=== PATIENT | male | born 1935 | race Caucasian/White ===

== ENCOUNTER → 2018-06-08 | Outpatient (CLI) | payer MEDICARE ==
[~2018-06-08] MED LIST: DILT120C9 PO; ENOX100S5 SQ; FURO20TA3 PO; LANS15CA5 PO; ONDA4TAB13 SL; POTA8TAB PO; SIMV40TA3 PO; TRAM-47 PO; WARF4TAB65 PO
== END | disposition home or self-care (01) ==
LOC: RAD 08:31
PROVIDERS: ATTEND Internal Medicine
DX: I82.432 Acute embolism and thrombosis of left popliteal vein (principal); Z86.711 Personal history of pulmonary embolism

== ENCOUNTER 2018-06-12 15:59 | Inpatient (IN) | payer MEDICARE, OTHER ==
[~2018-06-12] VITALS: Ht 180.3 cm; Wt 126.4 kg
[2018-06-12 16:22] LABS: BASOPHILS # (AUTO) 0.03 x10^3/uL (0-0.1); BASOPHILS % (AUTO) 0 % (0-1); EOSINOPHILS # (AUTO) 0.17 x10^3/uL (0-0.4); EOSINOPHILS % (AUTO) 3 % (1-7); LYMPHOCYTES # (AUTO) 1.45 x10^3/uL (1-3.4); LYMPHOCYTES % (AUTO) 25 % (22-44); MD NO; MEAN CORPUSCULAR HEMOGLOBIN 29.6 pg (27.5-34.5); MEAN CORPUSCULAR HGB CONC 33.5 g/dL (33.2-36.2); MEAN CORPUSCULAR VOLUME 88.3 fL (81-97); MEAN PLATELET VOLUME 8.7 fL (7.4-10.4); MONOCYTES # (AUTO) 0.71 x10^3/uL (0.2-0.8); MONOCYTES % (AUTO) 12 % (2-9); NEUTROPHILS # (AUTO) 3.53 x10^3/uL (1.8-6.8); NEUTROPHILS % (AUTO) 60 % (42-75); PLATELET COUNT 189 x10^3/uL (130-400); RED BLOOD COUNT 4.96 x10^6/uL (4.38-5.82); RED CELL DISTRIBUTION WIDTH 16.3 % (9.4-14.8)
[2018-06-12 16:31] LABS: ALBUMIN 3.7 g/dL (3.4-5.0); ANION GAP 3 mmol/L (5-15); CALCIUM 9.2 mg/dL (8.5-10.1); CHLORIDE 107 mmol/L (98-107); CREATININE 0.85 mg/dL (0.7-1.3)
[2018-06-12] MEDS ORDERED: WARF1TAB9 PO (16:50)
[2018-06-12] MEDS ORDERED: LANS15CA5 PO (16:52)
[2018-06-12] MEDS ORDERED: SIMV40TA3 PO (16:52)
[2018-06-12 16:59] LABS: INTERNATIONAL NORMALIZED RATIO 2.45 (0.93-1.1); PROTHROMBIN TIME 24.8 Seconds (9.6-11.5)
[2018-06-12] MEDS ORDERED: AMPICILLIN/SULBACTAM 3 GM in SODIUM CHLORIDE 0.9% 100 ML IV ONE (18:30)
[2018-06-12] MEDS ORDERED: SODIUM CHLORIDE FLUSH 10ML SYR IVF ONE (18:30)
[2018-06-12] MEDS ORDERED: HYDROcodone/APAP 5/325 TABLET PO PRN (19:30)
[2018-06-12] MEDS ORDERED: LABETALOL 5MG/ML, 20ML IVPush PRN (19:30)
[2018-06-12] MEDS ORDERED: KETOROLAC 30 MG/1 ML IV PRN (19:30)
[2018-06-12] MEDS ORDERED: BISACODYL 10 MG SUPP PR PRN (19:30)
[2018-06-12] MEDS: NICOTINE 7 MG/24 HR PATCH.TD24 TD SCH (19:30)
[2018-06-12] MEDS ORDERED: ONDANSETRON ODT 4 MG PO PRN (19:30)
[2018-06-12] MEDS: SIMVASTATIN 40 MG TABLET PO SCH (21:35)
[2018-06-12] MEDS: SODIUM CHLORIDE 0.9% 1,000 ML IV SCH (21:38)
[2018-06-12] MEDS: HEPARIN 25,000 UNITS/500ML PMX 500 ML IV PRN (22:07)
[2018-06-12 22:26] VITALS: BP 154/85
[2018-06-13 02:31] VITALS: BP 127/72
[2018-06-13 04:42] LABS: BASOPHILS # (AUTO) 0.02 x10^3/uL (0-0.1); BASOPHILS % (AUTO) 0 % (0-1); EOSINOPHILS # (AUTO) 0.11 x10^3/uL (0-0.4); EOSINOPHILS % (AUTO) 2 % (1-7); LYMPHOCYTES # (AUTO) 1.34 x10^3/uL (1-3.4); LYMPHOCYTES % (AUTO) 28 % (22-44); MD NO; MEAN CORPUSCULAR HEMOGLOBIN 29.1 pg (27.5-34.5); MEAN CORPUSCULAR HGB CONC 33.2 g/dL (33.2-36.2); MEAN CORPUSCULAR VOLUME 87.6 fL (81-97); MEAN PLATELET VOLUME 9.1 fL (7.4-10.4); MONOCYTES % (AUTO) 13 % (2-9); NEUTROPHILS # (AUTO) 2.67 x10^3/uL (1.8-6.8); NEUTROPHILS % (AUTO) 56 % (42-75); PLATELET COUNT 177 x10^3/uL (130-400); RED BLOOD COUNT 4.79 x10^6/uL (4.38-5.82); RED CELL DISTRIBUTION WIDTH 15.8 % (9.4-14.8)
[2018-06-13 04:49] LABS: ANION GAP 5 mmol/L (5-15); CALCIUM 8.7 mg/dL (8.5-10.1); CHLORIDE 107 mmol/L (98-107)
[2018-06-13 04:52] LABS: CREATININE 0.75 mg/dL (0.7-1.3)
[2018-06-13 09:00] VITALS: BP 129/76
[2018-06-13] MEDS: POTASSIUM CHLORIDE 8 MEQ TABLET.ER PO SCH (09:26)
[2018-06-13] MEDS: PANTOPROZOLE 40MG TABLET PO SCH (09:26)
[2018-06-13] MEDS: FUROSEMIDE 20 MG TABLET PO SCH (09:27)
[2018-06-13 09:31] LABS: ALBUMIN 3.4 g/dL (3.4-5.0); BILIRUBIN, DIRECT 0.4 mg/dL (0.1-0.2)
[2018-06-13 09:33] LABS: BILIRUBIN,INDIRECT 1.1 mg/dL (0.0-2.0); BILIRUBIN,TOTAL 1.5 mg/dL (0.2-1.0); TOTAL PROTEIN 6.9 g/dL (6.4-8.2)
[2018-06-13 10:08] LABS: INTERNATIONAL NORMALIZED RATIO 2.02 (0.93-1.1); PROTHROMBIN TIME 20.7 Seconds (9.6-11.5)
[2018-06-13 12:45] VITALS: BP 136/78
[2018-06-13] MEDS: SODIUM CHLORIDE 0.9% 1,000 ML IV SCH (16:46)
[2018-06-13] MEDS: NICOTINE 7 MG/24 HR PATCH.TD24 TD SCH (18:45)
[2018-06-13 19:00] VITALS: BP 152/79
[2018-06-13] MEDS: HEPARIN 25,000 UNITS/500ML PMX 500 ML IV PRN (19:14)
[2018-06-13] MEDS: SIMVASTATIN 40 MG TABLET PO SCH (20:17)
[2018-06-14 02:28] VITALS: BP 163/90
[2018-06-14 05:32] LABS: ALBUMIN 3.2 g/dL (3.4-5.0); ANION GAP 5 mmol/L (5-15); CALCIUM 8.4 mg/dL (8.5-10.1); CHLORIDE 109 mmol/L (98-107)
[2018-06-14 05:38] LABS: ALANINE AMINOTRANSFERASE 18 U/L (12-78); ALKALINE PHOSPHATASE 72 U/L (45-117); BILIRUBIN,TOTAL 1.9 mg/dL (0.2-1.0); CREATININE 0.77 mg/dL (0.7-1.3); TOTAL PROTEIN 6.8 g/dL (6.4-8.2)
[2018-06-14 05:40] LABS: PROTHROMBIN TIME 20.5 Seconds (9.6-11.5)
[2018-06-14 06:32] LABS: BASOPHILS # (AUTO) 0.03 x10^3/uL (0-0.1); BASOPHILS % (AUTO) 1 % (0-1); EOSINOPHILS # (AUTO) 0.11 x10^3/uL (0-0.4); EOSINOPHILS % (AUTO) 2 % (1-7); LYMPHOCYTES # (AUTO) 1.41 x10^3/uL (1-3.4); LYMPHOCYTES % (AUTO) 26 % (22-44); MD NO; MEAN CORPUSCULAR HEMOGLOBIN 28.6 pg (27.5-34.5); MEAN CORPUSCULAR HGB CONC 32.5 g/dL (33.2-36.2); MEAN PLATELET VOLUME 9.3 fL (7.4-10.4); MONOCYTES # (AUTO) 0.48 x10^3/uL (0.2-0.8); MONOCYTES % (AUTO) 9 % (2-9); NEUTROPHILS # (AUTO) 3.31 x10^3/uL (1.8-6.8); NEUTROPHILS % (AUTO) 62 % (42-75); PLATELET COUNT 178 x10^3/uL (130-400); RED BLOOD COUNT 4.98 x10^6/uL (4.38-5.82)
[2018-06-14] MEDS ORDERED: DILTIAZEM 120 MG CAP.ER.24H PO SCH (09:00)
[2018-06-14 09:59] VITALS: BP 152/100
[2018-06-14] MEDS: FUROSEMIDE 20 MG TABLET PO SCH (10:36)
[2018-06-14] MEDS: POTASSIUM CHLORIDE 8 MEQ TABLET.ER PO SCH (10:36)
[2018-06-14] MEDS: PANTOPROZOLE 40MG TABLET PO SCH (10:36)
[2018-06-14] MEDS: SODIUM CHLORIDE 0.9% 1,000 ML IV SCH (13:00)
[2018-06-14 14:08] VITALS: BP 100/70
== END 2018-06-14 14:22 | disposition home or self-care (01) | DRG 603 ==
LOC: ED 18:47 → EDIP 18:50 → 3NE 20:54 → DCLOUNGE 06-14 14:12
PROVIDERS: ADMIT Family Medicine; ATTEND Family Medicine
DX: L03.116 Cellulitis of left lower limb (principal); I82.532 Chronic embolism and thrombosis of left popliteal vein; D68.69 Other thrombophilia; E78.00 Pure hypercholesterolemia, unspecified; K21.9 Gastro-esophageal reflux disease without esophagitis; G47.33 Obstructive sleep apnea (adult) (pediatric); I10 Essential (primary) hypertension; Z79.01 Long term (current) use of anticoagulants; Z87.891 Personal history of nicotine dependence; Z86.711 Personal history of pulmonary embolism; Z90.49 Acquired absence of other specified parts of digestive tract; Z88.8 Allergy status to other drugs, medicaments and biological substances
CPT/HCPCS: 36415; 80048; 80053; 80076; 82040; 85025; 85520; 85610; 85730; 93005; 96374; 99285; G0378; J0295; J1644; J7030

== ENCOUNTER → 2018-06-19 | Outpatient (CLI) | payer MEDICARE, OTHER ==
[~2018-06-19] MED LIST changes: +WARF1TAB9 PO
== END | disposition home or self-care (01) ==
LOC: CFH 13:59
PROVIDERS: ATTEND Internal Medicine
DX: I51.7 Cardiomegaly (principal)
CPT/HCPCS: 71046; 71260; 74177

== ENCOUNTER → 2018-12-11 | Outpatient (CLI) | payer MEDICARE ==
[~2018-12-11] MED LIST changes: +BIOT25005 PO; +CALC1TAB58 PO; +CHOL2000 PO; +MULT-758 PO; +VIT1CAPS9 PO; +VITAM
[2018-12-11 10:54] LABS: BASOPHILS # (AUTO) 0.03 x10^3/uL (0-0.1); BASOPHILS % (AUTO) 1 % (0-1); EOSINOPHILS # (AUTO) 0.09 x10^3/uL (0-0.4); EOSINOPHILS % (AUTO) 2 % (1-7); LYMPHOCYTES # (AUTO) 1.07 x10^3/uL (1-3.4); LYMPHOCYTES % (AUTO) 22 % (22-44); MD NO; MEAN CORPUSCULAR HEMOGLOBIN 28.9 pg (27.5-34.5); MEAN CORPUSCULAR HGB CONC 32.6 g/dL (33.2-36.2); MEAN CORPUSCULAR VOLUME 88.7 fL (81-97); MEAN PLATELET VOLUME 9.5 fL (7.4-10.4); MONOCYTES # (AUTO) 0.56 x10^3/uL (0.2-0.8); MONOCYTES % (AUTO) 12 % (2-9); NEUTROPHILS # (AUTO) 3.11 x10^3/uL (1.8-6.8); NEUTROPHILS % (AUTO) 64 % (42-75); PLATELET COUNT 160 x10^3/uL (130-400); RED BLOOD COUNT 4.99 x10^6/uL (4.38-5.82); RED CELL DISTRIBUTION WIDTH 15.5 % (9.4-14.8)
[2018-12-11 10:55] LABS: ALANINE AMINOTRANSFERASE 23 U/L (12-78); ALBUMIN 3.6 g/dL (3.4-5.0); ANION GAP 7 mmol/L (5-15); CALCIUM 8.6 mg/dL (8.5-10.1); CHLORIDE 106 mmol/L (98-107); CREATININE 0.81 mg/dL (0.7-1.3); INTERNATIONAL NORMALIZED RATIO 2.57 (0.93-1.1)
[2018-12-11 11:03] LABS: ALKALINE PHOSPHATASE 82 U/L (45-117); BILIRUBIN,TOTAL 1.4 mg/dL (0.2-1.0); TOTAL PROTEIN 7.1 g/dL (6.4-8.2)
== END | disposition home or self-care (01) ==
LOC: STAR 09:32
PROVIDERS: ATTEND Internal Medicine
DX: Z01.818 Encounter for other preprocedural examination (principal); I48.91 Unspecified atrial fibrillation; Z88.8 Allergy status to other drugs, medicaments and biological substances; Z86.010 Personal history of colon polyps
CPT/HCPCS: 36415; 80053; 85025; 85610; 85730; 93005

== ENCOUNTER 2018-12-17 10:17 | Day surgery (SDC) | payer MEDICARE ==
[~2018-12-17] VITALS: Ht 180.3 cm; Wt 116.3 kg
[2018-12-17] MEDS ORDERED: LACTATED RINGERS 1,000 ML IV SCH (10:36)
[2018-12-17 10:50] VITALS: BP 157/80
[2018-12-17] MEDS ORDERED: ENOX40SY4 SQ (10:50)
[2018-12-17 11:59] LABS: INTERNATIONAL NORMALIZED RATIO 1.21 (0.93-1.1); PROTHROMBIN TIME 12.6 Seconds (9.6-11.5)
[2018-12-17] MEDS ORDERED: PROPOFOL 10 MG/ML, 20ML ONE (12:32)
== END 2018-12-17 14:30 | disposition home or self-care (01) ==
LOC: OUT 10:17
PROVIDERS: ATTEND Internal Medicine
DX: Z12.11 Encounter for screening for malignant neoplasm of colon (principal); K62.1 Rectal polyp; K57.30 Diverticulosis of large intestine without perforation or abscess without bleeding; E78.5 Hyperlipidemia, unspecified; I10 Essential (primary) hypertension; E66.9 Obesity, unspecified; I48.91 Unspecified atrial fibrillation; G47.33 Obstructive sleep apnea (adult) (pediatric); Z68.35 Body mass index [BMI] 35.0-35.9, adult; Z90.49 Acquired absence of other specified parts of digestive tract; Z96.653 Presence of artificial knee joint, bilateral; Z98.49 Cataract extraction status, unspecified eye; Z80.0 Family history of malignant neoplasm of digestive organs; Z86.010 Personal history of colon polyps; Z86.711 Personal history of pulmonary embolism; Z86.718 Personal history of other venous thrombosis and embolism
CPT/HCPCS: 36415; 45380; 85610; 85730; 88305; J2704; J7120

== ENCOUNTER → 2019-02-26 | Outpatient (CLI) | payer MEDICARE ==
[~2019-02-26] MED LIST changes: +ENOX40SY4 SQ
== END | disposition home or self-care (01) ==
LOC: CVU 09:47
PROVIDERS: ATTEND Internal Medicine Cardiovascular Disease
DX: Z01.818 Encounter for other preprocedural examination (principal); I48.91 Unspecified atrial fibrillation; I35.8 Other nonrheumatic aortic valve disorders; R29.898 Other symptoms and signs involving the musculoskeletal system
CPT/HCPCS: C8929; Q9957

== ENCOUNTER 2019-03-22 16:38 | Emergency (ER) | payer MEDICARE ==
[~2019-03-22] VITALS: Ht 180.3 cm; Wt 118.0 kg
[2019-03-22] MEDS ORDERED: PLEASE ENTER HEIGHT AND WEIGHT MC SCH (17:00)
[2019-03-22] MEDS ORDERED: LIDOCAINE 1%, 10ML INFIL ONE (17:00)
[2019-03-22] MEDS ORDERED: DIPH,PERTUSS(ACELL),TET VAC/PF 0.5 ML IM-VACC ONE ×2 (17:00→17:42)
--- NOTE | 2019-03-22 17:05 | NUR ---
break coverage: assumed care of pt on behalf of primary RN for lunch break only. pt here for bleeding to RLE after dropping a fower pot on it. bleedign controlled at this time. sitting up on gurney in position of comfort. no apparent distress
--- NOTE | 2019-03-22 17:10 | NUR ---
break coverage: Dr. Blair has been to bedside for eval. pressure dressing in pace. x-ray at bedside
[2019-03-22] MEDS ORDERED: LIDOCAINE-MPF 1%, 5ML ONE (17:41)
[2019-03-22 18:12] LABS: INTERNATIONAL NORMALIZED RATIO 2.4 (0.93-1.1); PROTHROMBIN TIME 24.4 Seconds (9.6-11.5)
--- NOTE | 2019-03-22 18:45 | NUR ---
SUTURES BEING DONE AT BEDSIDE.
--- NOTE | 2019-03-22 19:22 | NUR ---
SUTURES STILL BEING DONE. WILL PLACE AIR STIRRUP AND INSTRUCT WITH CRUTCHES WHEN DONE.
--- NOTE | 2019-03-22 19:25 | NUR ---
REPORT RECEIVED FROM CLAUDY GALINDO. ASSUMED CARE OF PT. GEORGE AT BEDSIDE FOR SUTURING.
[2019-03-22] MEDS ORDERED: BACITRACIN ZINC OINT 500U/GM, 0.9 GM ONE (19:38)
[2019-03-22 20:11] VITALS: BP 153/79
== END 2019-03-22 20:27 | disposition home or self-care (01) ==
LOC: ED 20:19
DX: S82.844A Nondisplaced bimalleolar fracture of right lower leg, initial encounter for closed fracture (principal); S91.011A Laceration without foreign body, right ankle, initial encounter; I10 Essential (primary) hypertension; I48.91 Unspecified atrial fibrillation; Z87.891 Personal history of nicotine dependence; W01.0XXA Fall on same level from slipping, tripping and stumbling without subsequent striking against object, initial encounter; Y93.89 Activity, other specified; Y92.009 Unspecified place in unspecified non-institutional (private) residence as the place of occurrence of the external cause; Y99.8 Other external cause status
CPT/HCPCS: 12042; 36415; 85610; 85730; 90471; 90715

== ENCOUNTER → 2020-08-24 | Outpatient (CLI) | payer MEDICARE ==
[~2020-08-24] MED LIST changes: -CALC1TAB58 PO; +DILT120C48 PO; -DILT120C9 PO; +SIMV40TA20 PO; -SIMV40TA3 PO; +[UNRECOGNIZED DRUG - CODE] PO
== END | disposition home or self-care (01) ==
LOC: CVU 14:39
PROVIDERS: ATTEND Internal Medicine Cardiovascular Disease
DX: I08.3 Combined rheumatic disorders of mitral, aortic and tricuspid valves (principal); I11.9 Hypertensive heart disease without heart failure; I48.91 Unspecified atrial fibrillation
CPT/HCPCS: 93306